=== PATIENT | male | born 1940 | race Caucasian/White ===

== ENCOUNTER 2017-03-08 15:32 | Inpatient (IN) | payer MEDICARE, OTHER ==
[~2017-03-08] VITALS: Ht 170.1 cm; Wt 55.6 kg
[~2017-03-08 15:32] MED LIST: ALBUTEROL2.5 MG/0.5 INH; ASPIR LOW81 MG PO; LEVAQUIN750 M1 PO; LIPITOR80 MG PO; PRILOSEC20 M2 PO; PRINIVIL10 MG PO; SYMBICORT1 AE1 INH; ZOLOFT50 MG PO
[2017-03-08 16:24] VITALS: BP 134/68
[2017-03-08 16:59] LABS: BUN 11 mg/dl (7-24); CARBON DIOXIDE 29 mmol/L (21-32); CHLORIDE 100 mmol/L (98-107); EST GLOM FILT AFRICAN AMERICAN > 60 ml/min; GLUCOSE 89 mg/dL (65-99); POTASSIUM 3.9 mmol/L (3.5-5.1); SODIUM 137 mmol/L (136-145)
[2017-03-08 18:25] VITALS: BP 130/70
[2017-03-08 19:30] VITALS: BP 128/58
[2017-03-08 20:00] VITALS: BP 128/58
[2017-03-09] VITALS: BP 111/53
[2017-03-09 06:26] LABS: BASO # 0.1 10*3/uL (0.0-0.1); BASO % 0.7 % (0.0-1.0); EOS # 0.2 10*3/uL (0.0-0.4); EOS % 1.8 % (1.0-4.0); HEMATOCRIT 40.4 % (42.0-52.0); HEMOGLOBIN 13.5 g/dl (14.0-18.0); LYMPH # 1.8 10*3/uL (1.3-4.4); LYMPH % 21.1 % (27.0-41.0); MEAN CELL VOLUME 85.6 fl (80.0-94.0); MEAN CORPUSCULAR HGB 28.6 pg (27.0-31.0); MEAN CORPUSCULAR HGB CONC 33.4 g/dl (33.0-37.0); MEAN PLATELET VOLUME 11.6 fl (9.6-12.3); MONO # 1.2 10*3/uL (0.1-1.0); MONO % 13.3 % (3.0-9.0); NEUT # 5.4 10*3/uL (2.3-7.9); NEUT % 62.8 % (47.0-73.0); PLATELET COUNT AUTOMATED 195 10*3/uL (130-400); RED BLOOD COUNT 4.72 10*6/uL (4.50-5.90); RED CELL DISTRI WIDTH 14.3 % (0-14.5); WHITE BLOOD COUNT 8.7 10*3/uL (4.8-10.8)
[2017-03-09 06:33] LABS: HEMOGLOBIN A1c 5.8 % (4.8-5.6)
[2017-03-09 06:54] LABS: ALBUMIN 3.1 gm/dl (3.1-4.5); BUN 12 mg/dl (7-24); CARBON DIOXIDE 32 mmol/L (21-32); CHLORIDE 103 mmol/L (98-107); CHOLESTEROL 122 mg/dL (<200); EST GLOM FILT AFRICAN AMERICAN > 60 ml/min; GLUCOSE 86 mg/dL (65-99); MAGNESIUM 2.1 mg/dL (1.5-2.1); POTASSIUM 3.8 mmol/L (3.5-5.1); SGOT/AST 12 IU/L (3-35); SGPT/ALT 18 U/L (12-78); SODIUM 142 mmol/L (136-145); TOTAL PROTEIN 6.3 gm/dL (6.4-8.2); TRIGLYCERIDES 102 mg/dl (<150); VLDL CHOLESTEROL 20 mg/dL (6-40)
[2017-03-09 06:56] LABS: ALKALINE PHOSPHATASE 78 U/L (45-117); BILIRUBIN, TOTAL 0.8 mg/dl (0.2-1.0); HDL CHOLESTEROL 61 mg/dl (40-60); LDL CHOLESTEROL 41 mg/dL (9-159)
[2017-03-09 07:06] LABS: FOLIC ACID > 24.00 ng/mL (>5.38)
[2017-03-09 08:00] VITALS: BP 109/59
[2017-03-09 12:00] VITALS: BP 112/60; BP 148/72
[2017-03-09] MEDS ORDERED: VITAMIN D1000 IU PO (13:26)
[2017-03-09] MEDS ORDERED: VITAMIN A8000 UNIT PO (13:27)
[2017-03-09] MEDS ORDERED: VITAMIN C500 M4 PO (13:27)
[2017-03-09] MEDS ORDERED: CLARITIN10 MG PO (13:27)
[2017-03-09] MEDS ORDERED: DAILY VITAMIN1 EAC3 PO (13:28)
[2017-03-09 16:00] VITALS: BP 127/59
[2017-03-09 20:00] VITALS: BP 142/68
[2017-03-10] VITALS: BP 103/54
[2017-03-10 07:12] LABS: BASO # 0.1 10*3/uL (0.0-0.1); BASO % 0.6 % (0.0-1.0); EOS # 0.2 10*3/uL (0.0-0.4); EOS % 2.1 % (1.0-4.0); HEMATOCRIT 39.2 % (42.0-52.0); HEMOGLOBIN 12.9 g/dl (14.0-18.0); LYMPH # 1.6 10*3/uL (1.3-4.4); LYMPH % 20.2 % (27.0-41.0); MEAN CELL VOLUME 85.2 fl (80.0-94.0); MEAN CORPUSCULAR HGB CONC 32.9 g/dl (33.0-37.0); MEAN PLATELET VOLUME 11.7 fl (9.6-12.3); MONO % 11.9 % (3.0-9.0); NEUT # 5.2 10*3/uL (2.3-7.9); NEUT % 64.8 % (47.0-73.0); PLATELET COUNT AUTOMATED 192 10*3/uL (130-400); RED CELL DISTRI WIDTH 14.3 % (0-14.5); WHITE BLOOD COUNT 8.1 10*3/uL (4.8-10.8)
[2017-03-10 08:00] VITALS: BP 135/56
[2017-03-10 12:00] VITALS: BP 114/81
[2017-03-10 16:37] VITALS: BP 123/53
== END 2017-03-10 17:24 | disposition home or self-care (01) | DRG 549 ==
LOC: ED 15:32 → 4E 17:56 → EDHOLD 17:56 → 4E 18:10
PROVIDERS: Emergency Medicine; Hospitalist
DX: M00.9 Pyogenic arthritis, unspecified (principal); E44.0 Moderate protein-calorie malnutrition; J44.9 Chronic obstructive pulmonary disease, unspecified; Z68.1 Body mass index [BMI] 19.9 or less, adult; I25.10 Atherosclerotic heart disease of native coronary artery without angina pectoris; K21.9 Gastro-esophageal reflux disease without esophagitis; E78.5 Hyperlipidemia, unspecified; I10 Essential (primary) hypertension; I25.2 Old myocardial infarction; Z87.891 Personal history of nicotine dependence; R79.82 Elevated C-reactive protein (CRP); D72.829 Elevated white blood cell count, unspecified; D72.810 Lymphocytopenia; Z98.49 Cataract extraction status, unspecified eye; Z95.5 Presence of coronary angioplasty implant and graft

== ENCOUNTER → 2017-11-01 | Outpatient (CLI) | payer MEDICARE, OTHER ==
[~2017-11-01] MED LIST changes: +CLARITIN10 MG PO; +DAILY VITAMIN1 EAC3 PO; +VITAMIN A8000 UNIT PO; +VITAMIN C500 M4 PO; +VITAMIN D1000 IU PO
== END | disposition home or self-care (01) ==
LOC: RAD 06:53
DX: Z00.01 Encounter for general adult medical examination with abnormal findings (principal); J44.9 Chronic obstructive pulmonary disease, unspecified; Z87.891 Personal history of nicotine dependence; R06.00 Dyspnea, unspecified

== ENCOUNTER 2018-03-03 10:28 | Emergency (ER) | payer MEDICARE, OTHER ==
[~2018-03-03] VITALS: Ht 170.1 cm; Wt 58.1 kg
[2018-03-03 11:08] LABS: BASO % 0.3 % (0.0-1.0); EOS # 0.1 10*3/uL (0.0-0.4); EOS % 0.8 % (1.0-4.0); HEMATOCRIT 44.6 % (42.0-52.0); HEMOGLOBIN 14.5 g/dl (14.0-18.0); LYMPH # 1.4 10*3/uL (1.3-4.4); LYMPH % 10.7 % (27.0-41.0); MEAN CELL VOLUME 87.5 fl (80.0-94.0); MEAN CORPUSCULAR HGB 28.4 pg (27.0-31.0); MEAN CORPUSCULAR HGB CONC 32.5 g/dl (33.0-37.0); MEAN PLATELET VOLUME 11.8 fl (9.6-12.3); MONO # 1.3 10*3/uL (0.1-1.0); MONO % 9.6 % (3.0-9.0); NEUT # 10.5 10*3/uL (2.3-7.9); NEUT % 78.2 % (47.0-73.0); PLATELET COUNT AUTOMATED 195 10*3/uL (130-400); RED CELL DISTRI WIDTH 14.3 % (0-14.5); WHITE BLOOD COUNT 13.4 10*3/uL (4.8-10.8)
[2018-03-03 11:24] LABS: ALBUMIN 3.8 gm/dl (3.1-4.5); ALKALINE PHOSPHATASE 105 U/L (45-117); BUN 9 mg/dl (7-24); CHLORIDE 101 mmol/L (98-107); POTASSIUM 4.1 mmol/L (3.5-5.1); SGOT/AST 18 IU/L (3-35); SGPT/ALT 20 U/L (12-78); SODIUM 137 mmol/L (136-145)
[2018-03-03] MEDS ORDERED: SEPTDS PO (11:40)
[2018-03-03] MEDS ORDERED: KEFLEX500 M1 PO (11:40)
[2018-03-03] MEDS ORDERED: NORCO 5-325 TA1 EACH PO (11:41)
== END 2018-03-03 11:50 | disposition home or self-care (01) ==
LOC: ED 10:28
PROVIDERS: Nurse Practitioner Family
DX: M70.21 Olecranon bursitis, right elbow (principal); R03.0 Elevated blood-pressure reading, without diagnosis of hypertension; F17.200 Nicotine dependence, unspecified, uncomplicated; Z79.899 Other long term (current) drug therapy; Z79.82 Long term (current) use of aspirin; Y93.89 Activity, other specified

== ENCOUNTER → 2018-03-06 | Outpatient (CLI) | payer MEDICARE, OTHER ==
[~2018-03-06] MED LIST changes: +KEFLEX500 M1 PO; +NORCO 5-325 TA1 EACH PO; +SEPTDS PO
[2018-03-06 13:56] LABS: BASO # 0.1 10*3/uL (0.0-0.1); BASO % 0.7 % (0.0-1.0); EOS # 0.1 10*3/uL (0.0-0.4); EOS % 1.7 % (1.0-4.0); HEMATOCRIT 43.1 % (42.0-52.0); LYMPH # 1.3 10*3/uL (1.3-4.4); LYMPH % 16.6 % (27.0-41.0); MEAN CELL VOLUME 85.9 fl (80.0-94.0); MEAN CORPUSCULAR HGB 27.9 pg (27.0-31.0); MEAN CORPUSCULAR HGB CONC 32.5 g/dl (33.0-37.0); MEAN PLATELET VOLUME 11.7 fl (9.6-12.3); MONO # 0.9 10*3/uL (0.1-1.0); MONO % 11.2 % (3.0-9.0); NEUT # 5.3 10*3/uL (2.3-7.9); NEUT % 69.4 % (47.0-73.0); PLATELET COUNT AUTOMATED 194 10*3/uL (130-400); RED BLOOD COUNT 5.02 10*6/uL (4.50-5.90); WHITE BLOOD COUNT 7.6 10*3/uL (4.8-10.8)
[2018-03-06 19:58] LABS: BF LYMPHOCYTES 12 %; BF MONOCYTES 36 %; BF NEUTROPHILS 52 %
[2018-03-06 19:59] LABS: BODY FLUID WBC 6625 /uL
[2018-03-09 15:07] LABS: ACID FAST SPEC PROCESSING Concentration (.)
== END | disposition home or self-care (01) ==
LOC: LAB 13:15
PROVIDERS: Orthopaedic Surgery
DX: M25.421 Effusion, right elbow (principal)

== ENCOUNTER 2018-05-17 09:39 | Inpatient (IN) | payer MEDICARE, OTHER ==
[~2018-05-17] VITALS: Ht 170.1 cm; Wt 57.7 kg
--- NOTE | ~2018-05-17 | EKG ---
[place], [place] ELECTROCARDIOGRAM REPORT NAME: LIZ TURNER UNIT #: [id number] ROOM: 401 DOCTOR: DWIGHT DRAFT REPORT BIRTHDATE: [birth year] [facility] Test Date: 2018-05-17 Test Time: 10:17:25 Pat Name: LIZ TURNER Department: Room: 401 Gender: M Copywriting Intern: Verenice Castaneda : 1940 Requested By: AZALIA GÓMEZ Order Number: [id number] Reading MD: Tuan Woo MD Measurements Intervals [place] Rate: 81 P: 83 [place]: 166 QRS: 78 QRSD: 91 T: 68 QT: 338 QTc: 393 Interpretive Statements Sinus rhythm Low voltage, extremity leads Electronically Signed On 05-18-2018 7:52:04 PDT by Tuan Woo MD CM:EKGRPT:ELECTROCARDIOGRAM REPORT [id number] AZALIA QUINTANILLA DRAFT REPORT AZALIA SIMONS
[2018-05-17 09:41] VITALS: BP 134/62
[2018-05-17 10:21] LABS: BASO % 0.5 % (0.0-1.0); EOS # 0.1 10*3/uL (0.0-0.4); EOS % 1.5 % (1.0-4.0); HEMATOCRIT 45.7 % (42.0-52.0); HEMOGLOBIN 14.9 g/dl (14.0-18.0); LYMPH # 1.6 10*3/uL (1.3-4.4); LYMPH % 19.4 % (27.0-41.0); MEAN CELL VOLUME 86.2 fl (80.0-94.0); MEAN CORPUSCULAR HGB 28.1 pg (27.0-31.0); MEAN CORPUSCULAR HGB CONC 32.6 g/dl (33.0-37.0); MEAN PLATELET VOLUME 11.3 fl (9.6-12.3); MONO # 0.9 10*3/uL (0.1-1.0); MONO % 11.8 % (3.0-9.0); NEUT # 5.3 10*3/uL (2.3-7.9); NEUT % 66.5 % (47.0-73.0); PLATELET COUNT AUTOMATED 204 10*3/uL (130-400); RED CELL DISTRI WIDTH 13.7 % (0-14.5)
[2018-05-17 10:37] LABS: ALBUMIN 3.8 gm/dl (3.1-4.5); ALKALINE PHOSPHATASE 101 U/L (45-117); BUN 6 mg/dl (7-24); CHLORIDE 102 mmol/L (98-107); CREATININE 0.94 mg/dL (0.70-1.30); LIPASE 132 U/L (73-393); POTASSIUM 4.3 mmol/L (3.5-5.1); SGOT/AST 17 IU/L (3-35); SGPT/ALT 20 U/L (12-78); SODIUM 137 mmol/L (136-145); TOTAL PROTEIN 7.1 gm/dL (6.4-8.2); TROPONIN I < 0.015 ng/ml (<0.045)
[2018-05-17 10:40] LABS: ACT PARTIAL THROMBO TIME 26.5 SECONDS (20.8-31.5); INTERNATIONAL NORM RATIO 0.9 (2.0-3.5)
[2018-05-17 10:53] VITALS: BP 108/66
[2018-05-17 11:18] LABS: BILIRUBIN NEGATIVE (NEGATIVE); BLOOD NEGATIVE (NEGATIVE); CLARITY CLEAR (CLEAR); COLOR YELLOW (YELLOW); GLUCOSE NEGATIVE (NEGATIVE); KETONE NEGATIVE (NEGATIVE); LEUKO ESTERASE NEGATIVE (NEGATIVE); NITRITE NEGATIVE (NEGATIVE); PH 7.5 (5.0-9.0); UROBILINOGEN 0.2 E.U./dl (0.2-1.0)
[2018-05-17 11:31] LABS: BACTERIA TRACE; RBC 0-2 rbc/hpf (0-2); WBC 0-2 wbc/hpf (0-5)
[2018-05-17 12:05] VITALS: BP 111/61
[2018-05-17 13:00] VITALS: BP 124/69; BP 127/69
[2018-05-17 16:00] VITALS: BP 109/45
[2018-05-17 20:00] VITALS: BP 120/50
[2018-05-18] VITALS: BP 112/57
[2018-05-18 06:39] LABS: HEMATOCRIT 42.8 % (42.0-52.0); HEMOGLOBIN 13.9 g/dl (14.0-18.0); MEAN CELL VOLUME 86.6 fl (80.0-94.0); MEAN CORPUSCULAR HGB 28.1 pg (27.0-31.0); MEAN CORPUSCULAR HGB CONC 32.5 g/dl (33.0-37.0); MEAN PLATELET VOLUME 12.2 fl (9.6-12.3); PLATELET COUNT AUTOMATED 230 10*3/uL (130-400); RED BLOOD COUNT 4.94 10*6/uL (4.50-5.90); RED CELL DISTRI WIDTH 13.7 % (0-14.5); WHITE BLOOD COUNT 25.7 10*3/uL (4.8-10.8)
[2018-05-18 06:45] LABS: ALBUMIN 3.4 gm/dl (3.1-4.5); ALKALINE PHOSPHATASE 93 U/L (45-117); BUN 11 mg/dl (7-24); CHLORIDE 104 mmol/L (98-107); CHOLESTEROL 120 mg/dL (<200); CREATININE 0.98 mg/dL (0.70-1.30); FREE T4 0.91 ng/dl (0.76-1.46); HDL CHOLESTEROL 70 mg/dl (40-60); LDL CHOLESTEROL 41 mg/dL (9-159); PHOSPHOROUS 1.9 mg/dL (2.5-4.9); POTASSIUM 4.3 mmol/L (3.5-5.1); SGOT/AST 12 IU/L (3-35); SGPT/ALT 17 U/L (12-78); SODIUM 140 mmol/L (136-145); TOTAL PROTEIN 6.5 gm/dL (6.4-8.2); TRIGLYCERIDES 47 mg/dl (<150); VLDL CHOLESTEROL 9 mg/dL (6-40)
[2018-05-18 06:50] LABS: THYROID STIM HORMONE (HS) 0.395 uIU/ml (0.358-4.75)
[2018-05-18 07:24] LABS: PLATELET SUFFICIENCY NORMAL (NORMAL); TOTAL CELLS COUNTED 100 #CELLS
[2018-05-18 07:36] LABS: VITAMIN D, 25-HYDROXY 57.5 ng/mL (30-100)
[2018-05-18 08:00] VITALS: BP 118/67
[2018-05-18] MEDS ORDERED: PREDNISONE10 MG PO (10:46)
[2018-05-18] MEDS ORDERED: LEVAQUIN750 M1 PO (10:46)
[2018-05-18] MEDS ORDERED: VALTREX1000 MG PO (10:46)
== END 2018-05-18 11:59 | disposition home or self-care (01) | DRG 596 ==
LOC: ED 09:39 → EDHOLD 12:03 → 4E 12:03
PROVIDERS: Internal Medicine; Physician Assistant
DX: B02.9 Zoster without complications (principal); J44.1 Chronic obstructive pulmonary disease with (acute) exacerbation; I25.10 Atherosclerotic heart disease of native coronary artery without angina pectoris; I10 Essential (primary) hypertension; E83.41 Hypermagnesemia; F17.210 Nicotine dependence, cigarettes, uncomplicated; K21.9 Gastro-esophageal reflux disease without esophagitis; E78.5 Hyperlipidemia, unspecified; Z79.82 Long term (current) use of aspirin; Z79.899 Other long term (current) drug therapy; Z95.5 Presence of coronary angioplasty implant and graft; Z98.49 Cataract extraction status, unspecified eye; Z82.49 Family history of ischemic heart disease and other diseases of the circulatory system; Z80.9 Family history of malignant neoplasm, unspecified

== ENCOUNTER 2019-09-19 11:28 | Emergency (ER) | payer MEDICARE, OTHER ==
[~2019-09-19] VITALS: Ht 170.1 cm; Wt 55.8 kg
[~2019-09-19 11:28] MED LIST changes: +PREDNISONE10 MG PO; +VALTREX1000 MG PO
[2019-09-19 12:00] LABS: BASO # 0.1 10*3/uL (0.0-0.1); BASO % 0.6 % (0.0-1.0); EOS # 0.1 10*3/uL (0.0-0.4); EOS % 1.2 % (1.0-4.0); HEMATOCRIT 47.7 % (42.0-52.0); HEMOGLOBIN 15.4 g/dl (14.0-18.0); LYMPH # 1.7 10*3/uL (1.3-4.4); LYMPH % 16.6 % (27.0-41.0); MEAN CELL VOLUME 86.3 fl (80.0-94.0); MEAN CORPUSCULAR HGB 27.8 pg (27.0-31.0); MEAN CORPUSCULAR HGB CONC 32.3 g/dl (33.0-37.0); MEAN PLATELET VOLUME 11.8 fl (9.6-12.3); MONO # 1.2 10*3/uL (0.1-1.0); MONO % 11.2 % (3.0-9.0); NEUT # 7.3 10*3/uL (2.3-7.9); NEUT % 69.9 % (47.0-73.0); PLATELET COUNT AUTOMATED 255 10*3/uL (130-400); RED BLOOD COUNT 5.53 10*6/uL (4.50-5.90); RED CELL DISTRI WIDTH 13.9 % (0-14.5); WHITE BLOOD COUNT 10.4 10*3/uL (4.8-10.8)
[2019-09-19 12:11] LABS: ACT PARTIAL THROMBO TIME 30.9 SECONDS (20.0-32.1); INTERNATIONAL NORM RATIO 0.9 (2.0-3.5)
[2019-09-19 12:17] LABS: ALBUMIN 3.6 gm/dl (3.1-4.5); ALKALINE PHOSPHATASE 105 U/L (45-117); BUN 13 mg/dl (7-24); CHLORIDE 102 mmol/L (98-107); CREATININE 0.94 mg/dL (0.70-1.30); POTASSIUM 4.3 mmol/L (3.5-5.1); SGOT/AST 16 IU/L (3-35); SGPT/ALT 21 U/L (12-78); SODIUM 137 mmol/L (136-145); TOTAL PROTEIN 7.5 gm/dL (6.4-8.2)
[2019-09-19 12:20] LABS: TROPONIN I < 0.015 ng/ml (<0.045)
[2019-09-19] MEDS ORDERED: Ipratropium Brom3 ML INH (12:58)
[2019-09-19] MEDS ORDERED: VIBRAMYCIN100 MG PO (12:58)
[2019-09-19] MEDS ORDERED: PREDNISONE20 M1 PO (12:58)
== END 2019-09-19 13:04 | disposition home or self-care (01) ==
LOC: ED 11:28
PROVIDERS: Emergency Medicine
DX: J44.1 Chronic obstructive pulmonary disease with (acute) exacerbation (principal); I25.2 Old myocardial infarction; I25.10 Atherosclerotic heart disease of native coronary artery without angina pectoris; E78.5 Hyperlipidemia, unspecified; K21.9 Gastro-esophageal reflux disease without esophagitis; F17.200 Nicotine dependence, unspecified, uncomplicated; Z79.82 Long term (current) use of aspirin; Z79.899 Other long term (current) drug therapy; Z79.2 Long term (current) use of antibiotics; Z90.49 Acquired absence of other specified parts of digestive tract

== ENCOUNTER 2019-10-14 10:36 | Inpatient (IN) | payer MEDICARE, OTHER ==
[~2019-10-14] VITALS: Ht 170.2 cm; Wt 52.6 kg
[~2019-10-14 10:36] MED LIST changes: +Ipratropium Brom3 ML INH; +PREDNISONE20 M1 PO; +VIBRAMYCIN100 MG PO
[2019-10-14 10:45] VITALS: BP 89/71
[2019-10-14 11:15] LABS: HEMATOCRIT 46.3 % (42.0-52.0); HEMOGLOBIN 14.9 g/dl (14.0-18.0); MEAN CELL VOLUME 85.7 fl (80.0-94.0); MEAN CORPUSCULAR HGB 27.6 pg (27.0-31.0); MEAN CORPUSCULAR HGB CONC 32.2 g/dl (33.0-37.0); MEAN PLATELET VOLUME 11.3 fl (9.6-12.3); PLATELET COUNT AUTOMATED 273 10*3/uL (130-400); RED CELL DISTRI WIDTH 14.2 % (0-14.5); WHITE BLOOD COUNT 18.5 10*3/uL (4.8-10.8)
[2019-10-14 11:24] VITALS: BP 120/50
[2019-10-14 11:25] LABS: ACT PARTIAL THROMBO TIME 30.8 SECONDS (20.0-32.1); INTERNATIONAL NORM RATIO 0.9 (2.0-3.5)
[2019-10-14 11:26] LABS: ALBUMIN 3.6 gm/dl (3.1-4.5); ALKALINE PHOSPHATASE 113 U/L (45-117); BUN 9 mg/dl (7-24); CHLORIDE 101 mmol/L (98-107); POTASSIUM 4.1 mmol/L (3.5-5.1); SGOT/AST 13 IU/L (3-35); SGPT/ALT 23 U/L (12-78); SODIUM 136 mmol/L (136-145); TOTAL PROTEIN 7.3 gm/dL (6.4-8.2); TROPONIN I < 0.015 ng/ml (<0.045)
[2019-10-14 11:39] LABS: TOTAL CELLS COUNTED 100 #CELLS
[2019-10-14 11:40] LABS: PLATELET SUFFICIENCY NORMAL (NORMAL); POLYCHROMASIA SLIGHT; VACUOLATION OF NEUTROPHILS SLIGHT
[2019-10-14 12:20] VITALS: BP 107/54
[2019-10-14] MEDS ORDERED: SPIRIVA RESPIMAT4 GM INH (13:17)
[2019-10-14] MEDS ORDERED: Ventolin 02.5 MG/3 M INH (13:20)
[2019-10-14] MEDS ORDERED: ULTRAM50 MG PO (13:21)
[2019-10-14] MEDS ORDERED: MUCINEX ER600 MG PO (13:23)
[2019-10-14] MEDS ORDERED: CLARITIN10 MG PO (13:25)
[2019-10-14] MEDS ORDERED: CALCIUM 500 +1 EAC3 PO (13:26)
[2019-10-14] MEDS ORDERED: FISH OIL PEARL PO (13:27)
[2019-10-14 16:00] VITALS: BP 109/51
[2019-10-14 16:29] LABS: BILIRUBIN NEGATIVE (NEGATIVE); BLOOD NEGATIVE (NEGATIVE); CLARITY CLEAR (CLEAR); COLOR YELLOW (YELLOW); GLUCOSE NEGATIVE (NEGATIVE); KETONE NEGATIVE (NEGATIVE); LEUKO ESTERASE NEGATIVE (NEGATIVE); NITRITE NEGATIVE (NEGATIVE); PH 7.5 (5.0-9.0); UROBILINOGEN 0.2 E.U./dl (0.2-1.0)
[2019-10-14 16:34] LABS: BACTERIA TRACE; EPITHELIAL CELLS 0-2; RBC 0-2 rbc/hpf (0-2); WBC 0-2 wbc/hpf (0-5)
[2019-10-14 20:00] VITALS: BP 105/49
[2019-10-15] VITALS: BP 116/44
[2019-10-15 06:45] LABS: HEMATOCRIT 39.6 % (42.0-52.0); HEMOGLOBIN 12.6 g/dl (14.0-18.0); MEAN CELL VOLUME 86.3 fl (80.0-94.0); MEAN CORPUSCULAR HGB 27.5 pg (27.0-31.0); MEAN CORPUSCULAR HGB CONC 31.8 g/dl (33.0-37.0); MEAN PLATELET VOLUME 11.3 fl (9.6-12.3); PLATELET COUNT AUTOMATED 264 10*3/uL (130-400); RED BLOOD COUNT 4.59 10*6/uL (4.50-5.90); RED CELL DISTRI WIDTH 14.2 % (0-14.5); WHITE BLOOD COUNT 17.2 10*3/uL (4.8-10.8)
[2019-10-15 07:09] LABS: ALBUMIN 2.9 gm/dl (3.1-4.5); ALKALINE PHOSPHATASE 96 U/L (45-117); BUN 10 mg/dl (7-24); CHLORIDE 108 mmol/L (98-107); CHOLESTEROL 135 mg/dL (<200); CREATININE 0.92 mg/dL (0.70-1.30); HDL CHOLESTEROL 68 mg/dl (40-60); LDL CHOLESTEROL 56 mg/dL (9-159); POTASSIUM 3.9 mmol/L (3.5-5.1); SGOT/AST 10 IU/L (3-35); SGPT/ALT 17 U/L (12-78); SODIUM 142 mmol/L (136-145); TOTAL PROTEIN 6.1 gm/dL (6.4-8.2); TRIGLYCERIDES 57 mg/dl (<150); VLDL CHOLESTEROL 11 mg/dL (6-40)
[2019-10-15 07:23] LABS: ATYPICAL LYMPHS 1 % (0-0); BURR CELLS FEW; OVALOCYTES FEW; PLATELET SUFFICIENCY NORMAL (NORMAL); TOTAL CELLS COUNTED 100 #CELLS
[2019-10-15 07:24] LABS: POLYCHROMASIA SLIGHT; TOXIC GRANULATION SLIGHT; VACUOLATION OF NEUTROPHILS SLIGHT
[2019-10-15 07:50] VITALS: BP 120/62
[2019-10-15 11:52] VITALS: BP 126/56
[2019-10-15 16:00] VITALS: BP 138/59
[2019-10-15 20:00] VITALS: BP 136/63
[2019-10-16] VITALS: BP 119/50
[2019-10-16 08:00] VITALS: BP 122/58
[2019-10-16] MEDS ORDERED: OMNICEF300 MG PO (09:10)
[2019-10-16] MEDS ORDERED: ZITHROMAX500 MG PO (09:10)
[2019-10-16] MEDS ORDERED: PREDNISONE10 MG PO (09:10)
== END 2019-10-16 10:06 | disposition home or self-care (01) | DRG 871 ==
LOC: ED 10:36 → 4E 11:48 → EDHOLD 11:48 → 4E 12:17
PROVIDERS: Emergency Medicine; Student in an Organized Health Care Education/Training Program; ADMIT Emergency Medicine
DX: A41.9 Sepsis, unspecified organism (principal); J18.9 Pneumonia, unspecified organism; J44.1 Chronic obstructive pulmonary disease with (acute) exacerbation; E87.2 Acidosis; J44.0 Chronic obstructive pulmonary disease with (acute) lower respiratory infection; R65.20 Severe sepsis without septic shock; I25.10 Atherosclerotic heart disease of native coronary artery without angina pectoris; I10 Essential (primary) hypertension; E78.5 Hyperlipidemia, unspecified; K21.9 Gastro-esophageal reflux disease without esophagitis; J20.9 Acute bronchitis, unspecified; M94.0 Chondrocostal junction syndrome [Tietze]; F17.200 Nicotine dependence, unspecified, uncomplicated; Z96.1 Presence of intraocular lens; Z95.5 Presence of coronary angioplasty implant and graft; Z79.899 Other long term (current) drug therapy; Z79.82 Long term (current) use of aspirin; I25.2 Old myocardial infarction; Z98.49 Cataract extraction status, unspecified eye; Z82.49 Family history of ischemic heart disease and other diseases of the circulatory system; Z83.3 Family history of diabetes mellitus; Z98.42 Cataract extraction status, left eye; Z98.41 Cataract extraction status, right eye; Z71.6 Tobacco abuse counseling

== ENCOUNTER → 2020-07-29 | Outpatient (CLI) | payer MEDICARE, OTHER ==
[~2020-07-29] MED LIST changes: +CALCIUM 500 +1 EAC3 PO; +FISH OIL PEARL PO; +MUCINEX ER600 MG PO; +OMNICEF300 MG PO; +SPIRIVA RESPIMAT4 GM INH; +ULTRAM50 MG PO; +Ventolin 02.5 MG/3 M INH; +ZITHROMAX500 MG PO
== END | disposition home or self-care (01) ==
LOC: RAD 10:31
PROVIDERS: ATTEND Nurse Practitioner Family
DX: S83.92XA Sprain of unspecified site of left knee, initial encounter (principal); M17.12 Unilateral primary osteoarthritis, left knee; X58.XXXA Exposure to other specified factors, initial encounter; Y93.89 Activity, other specified; Y92.89 Other specified places as the place of occurrence of the external cause; Y99.8 Other external cause status

== ENCOUNTER 2021-02-02 06:48 | Inpatient (IN) | payer MEDICARE, OTHER ==
[~2021-02-02] VITALS: Ht 170.1 cm; Wt 56.4 kg
[2021-02-02 07:09] VITALS: BP 125/42
[2021-02-02 08:07] LABS: BASO # 0.1 10*3/uL (0.0-0.1); BASO % 0.4 % (0.0-1.0); EOS # 0.1 10*3/uL (0.0-0.4); EOS % 0.4 % (1.0-4.0); HEMATOCRIT 48.9 % (42.0-52.0); LYMPH % 7.8 % (27.0-41.0); MEAN CELL VOLUME 86.1 fl (80.0-94.0); MEAN CORPUSCULAR HGB 26.9 pg (27.0-31.0); MEAN CORPUSCULAR HGB CONC 31.3 g/dl (33.0-37.0); MEAN PLATELET VOLUME 11.6 fl (9.6-12.3); MONO # 1.2 10*3/uL (0.1-1.0); NEUT # 10.7 10*3/uL (2.3-7.9); NEUT % 82.1 % (47.0-73.0); PLATELET COUNT AUTOMATED 202 10*3/uL (130-400); RED BLOOD COUNT 5.68 10*6/uL (4.50-5.90); RED CELL DISTRI WIDTH 13.8 % (0-14.5); WHITE BLOOD COUNT 13.1 10*3/uL (4.8-10.8)
[2021-02-02 08:22] LABS: ALBUMIN 3.4 gm/dl (3.1-4.5); ALKALINE PHOSPHATASE 110 U/L (45-117); BUN 9 mg/dl (7-24); CHLORIDE 103 mmol/L (98-107); CREATININE 0.85 mg/dL (0.70-1.30); POTASSIUM 4.1 mmol/L (3.5-5.1); SGOT/AST 13 IU/L (3-35); SGPT/ALT 20 U/L (12-78); SODIUM 136 mmol/L (136-145); URIC ACID 4.6 mg/dL (3.5-7.2)
[2021-02-02 14:16] VITALS: BP 113/80
[2021-02-02 16:00] VITALS: BP 112/50
[2021-02-02 16:35] LABS: BODY FLUID WBC > 100000 /uL
[2021-02-02] MEDS ORDERED: GABAPENTIN400 MG PO (16:58)
[2021-02-02] MEDS ORDERED: LISINOPRIL10 M1 PO (16:59)
[2021-02-02] MEDS ORDERED: OMEPRAZOLE10 MG PO (17:00)
[2021-02-02 17:08] LABS: BF LYMPHOCYTES 10 %; BF NEUTROPHILS 90 %
[2021-02-02 20:00] VITALS: BP 118/48
[2021-02-03] VITALS (9 sets, daily range): BP systolic 117–160; BP diastolic 54–78
[2021-02-03 06:12] LABS: BASO % 0.1 % (0.0-1.0); EOS % 0.1 % (1.0-4.0); HEMATOCRIT 42.8 % (42.0-52.0); LYMPH # 0.9 10*3/uL (1.3-4.4); LYMPH % 6.1 % (27.0-41.0); MEAN CELL VOLUME 84.6 fl (80.0-94.0); MEAN CORPUSCULAR HGB 26.9 pg (27.0-31.0); MEAN CORPUSCULAR HGB CONC 31.8 g/dl (33.0-37.0); MONO % 6.9 % (3.0-9.0); NEUT # 12.3 10*3/uL (2.3-7.9); NEUT % 86.4 % (47.0-73.0); PLATELET COUNT AUTOMATED 212 10*3/uL (130-400); RED BLOOD COUNT 5.06 10*6/uL (4.50-5.90); RED CELL DISTRI WIDTH 13.8 % (0-14.5); WHITE BLOOD COUNT 14.3 10*3/uL (4.8-10.8)
[2021-02-03 06:30] LABS: ALBUMIN 3.1 gm/dl (3.1-4.5); ALKALINE PHOSPHATASE 88 U/L (45-117); BUN 10 mg/dl (7-24); CHLORIDE 108 mmol/L (98-107); CREATININE 0.88 mg/dL (0.70-1.30); POTASSIUM 4.1 mmol/L (3.5-5.1); SGOT/AST 9 IU/L (3-35); SGPT/ALT 16 U/L (12-78); SODIUM 139 mmol/L (136-145); TOTAL PROTEIN 6.4 gm/dL (6.4-8.2)
[2021-02-04] VITALS: BP 119/46
[2021-02-04 05:46] LABS: BUN 11 mg/dl (7-24); CHLORIDE 107 mmol/L (98-107); CREATININE 0.79 mg/dL (0.70-1.30); POTASSIUM 3.4 mmol/L (3.5-5.1); SODIUM 141 mmol/L (136-145)
[2021-02-04 06:18] LABS: MEAN CELL VOLUME 84.8 fl (80.0-94.0); MEAN CORPUSCULAR HGB 27.2 pg (27.0-31.0); MEAN CORPUSCULAR HGB CONC 32.1 g/dl (33.0-37.0); PLATELET COUNT AUTOMATED 203 10*3/uL (130-400); WHITE BLOOD COUNT 17.8 10*3/uL (4.8-10.8)
[2021-02-04 06:59] LABS: PLATELET SUFFICIENCY NORMAL (NORMAL); TOTAL CELLS COUNTED 100 #CELLS
[2021-02-04 07:00] LABS: BURR CELLS FEW; OVALOCYTES FEW; POLYCHROMASIA SLIGHT
[2021-02-04 08:00] VITALS: BP 132/68
[2021-02-04 12:00] VITALS: BP 150/68
[2021-02-04 16:00] VITALS: BP 136/58
[2021-02-04 20:00] VITALS: BP 150/61
[2021-02-05] VITALS: BP 142/60
[2021-02-05 06:32] LABS: HEMATOCRIT 39.4 % (42.0-52.0); MEAN CELL VOLUME 86.2 fl (80.0-94.0); MEAN CORPUSCULAR HGB 27.1 pg (27.0-31.0); MEAN CORPUSCULAR HGB CONC 31.5 g/dl (33.0-37.0); MEAN PLATELET VOLUME 11.3 fl (9.6-12.3); PLATELET COUNT AUTOMATED 200 10*3/uL (130-400); RED BLOOD COUNT 4.57 10*6/uL (4.50-5.90); RED CELL DISTRI WIDTH 14.1 % (0-14.5)
[2021-02-05 07:07] LABS: BURR CELLS FEW; OVALOCYTES FEW; PLATELET SUFFICIENCY NORMAL (NORMAL); TOTAL CELLS COUNTED 100 #CELLS
[2021-02-05 08:00] VITALS: BP 144/62
[2021-02-05 12:00] VITALS: BP 160/84
[2021-02-05 16:00] VITALS: BP 160/83
[2021-02-05 20:00] VITALS: BP 167/85
[2021-02-06] VITALS: BP 124/52
[2021-02-06 08:07] VITALS: BP 123/75
[2021-02-06 12:17] VITALS: BP 185/74
[2021-02-06] MEDS ORDERED: CLINDAMYCIN HC300 MG PO (14:22)
== END 2021-02-06 15:00 | disposition home or self-care (01) | DRG 507 ==
LOC: ED 06:48 → EDHOLD 09:46 → 4E 09:46 → EDHOLD 09:59 → 4E 13:49
PROVIDERS: Emergency Medicine; Orthopaedic Surgery; Student in an Organized Health Care Education/Training Program; ADMIT Student in an Organized Health Care Education/Training Program; ATTEND Student in an Organized Health Care Education/Training Program
PROC: 0RBL0ZZ Excision of Right Elbow Joint, Open Approach (ICD-10-PCS; 2021-02-02)
PROC: 0R9L3ZZ Drainage of Right Elbow Joint, Percutaneous Approach (ICD-10-PCS; 2021-02-02)
PROC: 0R9L0ZZ Drainage of Right Elbow Joint, Open Approach (ICD-10-PCS; principal; 2021-02-03)
DX: M00.9 Pyogenic arthritis, unspecified (principal); R65.10 Systemic inflammatory response syndrome (SIRS) of non-infectious origin without acute organ dysfunction; E44.1 Mild protein-calorie malnutrition; Z68.1 Body mass index [BMI] 19.9 or less, adult; M11.221 Other chondrocalcinosis, right elbow; R79.82 Elevated C-reactive protein (CRP); E83.41 Hypermagnesemia; I25.10 Atherosclerotic heart disease of native coronary artery without angina pectoris; J44.9 Chronic obstructive pulmonary disease, unspecified; I10 Essential (primary) hypertension; E78.5 Hyperlipidemia, unspecified; K21.9 Gastro-esophageal reflux disease without esophagitis; F17.210 Nicotine dependence, cigarettes, uncomplicated; Z71.6 Tobacco abuse counseling; Z90.49 Acquired absence of other specified parts of digestive tract; Z95.5 Presence of coronary angioplasty implant and graft; Z98.49 Cataract extraction status, unspecified eye; Z83.3 Family history of diabetes mellitus; Z82.49 Family history of ischemic heart disease and other diseases of the circulatory system; Z80.8 Family history of malignant neoplasm of other organs or systems; I25.2 Old myocardial infarction; Z79.899 Other long term (current) drug therapy; Z79.82 Long term (current) use of aspirin

== ENCOUNTER 2021-04-17 14:14 | Inpatient (IN) | payer MEDICARE, OTHER ==
[~2021-04-17] VITALS: Ht 170.1 cm; Wt 54.4 kg
[~2021-04-17 14:14] MED LIST changes: +CLINDAMYCIN HC300 MG PO; +GABAPENTIN400 MG PO; +LISINOPRIL10 M1 PO; +OMEPRAZOLE10 MG PO
[2021-04-17 14:34] VITALS: BP 166/70
[2021-04-17 16:00] VITALS: BP 114/47
[2021-04-17 16:11] VITALS: BP 114/47
[2021-04-17 16:54] LABS: BASO # 0.1 10*3/uL (0.0-0.1); BASO % 0.2 % (0.0-1.0); EOS % 0.2 % (1.0-4.0); HEMATOCRIT 43.9 % (42.0-52.0); LYMPH # 0.9 10*3/uL (1.3-4.4); LYMPH % 4.6 % (27.0-41.0); MEAN CELL VOLUME 85.1 fl (80.0-94.0); MEAN CORPUSCULAR HGB 26.9 pg (27.0-31.0); MEAN CORPUSCULAR HGB CONC 31.7 g/dl (33.0-37.0); MEAN PLATELET VOLUME 11.3 fl (9.6-12.3); MONO % 4.7 % (3.0-9.0); NEUT # 18.1 10*3/uL (2.3-7.9); NEUT % 89.9 % (47.0-73.0); PLATELET COUNT AUTOMATED 238 10*3/uL (130-400); RED BLOOD COUNT 5.16 10*6/uL (4.50-5.90); RED CELL DISTRI WIDTH 14.5 % (0-14.5); WHITE BLOOD COUNT 20.2 10*3/uL (4.8-10.8)
[2021-04-17 17:00] VITALS: BP 109/82
[2021-04-17 18:31] LABS: ALBUMIN 3.7 gm/dl (3.1-4.5); ALKALINE PHOSPHATASE 109 U/L (45-117); BUN 12 mg/dl (7-24); CHLORIDE 105 mmol/L (98-107); CREATININE 0.95 mg/dL (0.70-1.30); POTASSIUM 3.9 mmol/L (3.5-5.1); SGOT/AST 12 IU/L (3-35); SGPT/ALT 21 U/L (12-78); SODIUM 138 mmol/L (136-145)
[2021-04-17 20:00] VITALS: BP 123/52
[2021-04-18 04:13] LABS: HEMATOCRIT 38.2 % (42.0-52.0); MEAN CELL VOLUME 84.9 fl (80.0-94.0); MEAN CORPUSCULAR HGB 26.9 pg (27.0-31.0); MEAN CORPUSCULAR HGB CONC 31.7 g/dl (33.0-37.0); MEAN PLATELET VOLUME 11.5 fl (9.6-12.3); PLATELET COUNT AUTOMATED 216 10*3/uL (130-400); RED CELL DISTRI WIDTH 14.6 % (0-14.5); WHITE BLOOD COUNT 14.5 10*3/uL (4.8-10.8)
[2021-04-18 04:38] LABS: ALBUMIN 2.9 gm/dl (3.1-4.5); ALKALINE PHOSPHATASE 90 U/L (45-117); BUN 14 mg/dl (7-24); CHLORIDE 109 mmol/L (98-107); CHOLESTEROL 118 mg/dL (<200); LDL CHOLESTEROL 42 mg/dL (9-159); POTASSIUM 4.1 mmol/L (3.5-5.1); SGOT/AST 8 IU/L (3-35); SGPT/ALT 16 U/L (12-78); SODIUM 139 mmol/L (136-145); TOTAL PROTEIN 5.8 gm/dL (6.4-8.2); TRIGLYCERIDES 51 mg/dl (<150)
[2021-04-18 04:44] LABS: THYROID STIM HORMONE (HS) 0.209 uIU/ml (0.358-4.75)
[2021-04-18 05:05] LABS: PLATELET SUFFICIENCY NORMAL (NORMAL); TOTAL CELLS COUNTED 100 #CELLS
[2021-04-18 05:06] LABS: BURR CELLS MODERATE
[2021-04-18 05:26] VITALS: BP 112/61
[2021-04-18 08:00] VITALS: BP 120/50
[2021-04-18 16:00] VITALS: BP 117/53
[2021-04-18 20:00] VITALS: BP 131/54
[2021-04-19] VITALS: BP 112/53
[2021-04-19 07:58] LABS: HEMATOCRIT 41.3 % (42.0-52.0); MEAN CELL VOLUME 86.6 fl (80.0-94.0); MEAN CORPUSCULAR HGB 26.6 pg (27.0-31.0); MEAN CORPUSCULAR HGB CONC 30.8 g/dl (33.0-37.0); MEAN PLATELET VOLUME 11.6 fl (9.6-12.3); PLATELET COUNT AUTOMATED 205 10*3/uL (130-400); RED BLOOD COUNT 4.77 10*6/uL (4.50-5.90); RED CELL DISTRI WIDTH 14.9 % (0-14.5); WHITE BLOOD COUNT 20.4 10*3/uL (4.8-10.8)
[2021-04-19 08:00] VITALS: BP 134/65
[2021-04-19 08:15] LABS: TOTAL CELLS COUNTED 100 #CELLS
[2021-04-19 08:16] LABS: BURR CELLS FEW; OVALOCYTES FEW; PLATELET SUFFICIENCY NORMAL (NORMAL)
[2021-04-19 08:19] LABS: BUN 10 mg/dl (7-24); CHLORIDE 112 mmol/L (98-107); CREATININE 0.82 mg/dL (0.70-1.30); POTASSIUM 3.3 mmol/L (3.5-5.1); SODIUM 145 mmol/L (136-145)
[2021-04-19 12:00] VITALS: BP 135/65
[2021-04-19 16:00] VITALS: BP 143/60
[2021-04-19 20:00] VITALS: BP 111/47
[2021-04-20] VITALS: BP 116/57
[2021-04-20 08:00] VITALS: BP 123/54
[2021-04-20 08:46] LABS: BASO # 0.1 10*3/uL (0.0-0.1); BASO % 0.3 % (0.0-1.0); EOS # 0.2 10*3/uL (0.0-0.4); EOS % 1.3 % (1.0-4.0); HEMATOCRIT 40.5 % (42.0-52.0); LYMPH # 2.6 10*3/uL (1.3-4.4); LYMPH % 16.8 % (27.0-41.0); MEAN CELL VOLUME 87.7 fl (80.0-94.0); MEAN CORPUSCULAR HGB 27.3 pg (27.0-31.0); MEAN CORPUSCULAR HGB CONC 31.1 g/dl (33.0-37.0); MEAN PLATELET VOLUME 11.3 fl (9.6-12.3); MONO # 0.9 10*3/uL (0.1-1.0); MONO % 6.1 % (3.0-9.0); NEUT # 11.4 10*3/uL (2.3-7.9); PLATELET COUNT AUTOMATED 190 10*3/uL (130-400); RED BLOOD COUNT 4.62 10*6/uL (4.50-5.90); RED CELL DISTRI WIDTH 15.1 % (0-14.5); WHITE BLOOD COUNT 15.2 10*3/uL (4.8-10.8)
[2021-04-20 08:57] LABS: BUN 8 mg/dl (7-24); CHLORIDE 109 mmol/L (98-107); CREATININE 0.96 mg/dL (0.70-1.30); POTASSIUM 3.9 mmol/L (3.5-5.1); SODIUM 141 mmol/L (136-145)
[2021-04-20 12:00] VITALS: BP 120/65
[2021-04-20 16:00] VITALS: BP 116/59
[2021-04-20 20:00] VITALS: BP 125/52
[2021-04-21] VITALS: BP 106/47
[2021-04-21 06:22] LABS: HEMATOCRIT 41.4 % (42.0-52.0); MEAN CELL VOLUME 86.6 fl (80.0-94.0); MEAN CORPUSCULAR HGB CONC 31.2 g/dl (33.0-37.0); MEAN PLATELET VOLUME 11.9 fl (9.6-12.3); PLATELET COUNT AUTOMATED 212 10*3/uL (130-400); RED BLOOD COUNT 4.78 10*6/uL (4.50-5.90); RED CELL DISTRI WIDTH 14.7 % (0-14.5); WHITE BLOOD COUNT 18.2 10*3/uL (4.8-10.8)
[2021-04-21 06:38] LABS: ALBUMIN 2.6 gm/dl (3.1-4.5); ALKALINE PHOSPHATASE 103 U/L (45-117); BUN 7 mg/dl (7-24); CHLORIDE 109 mmol/L (98-107); CREATININE 0.82 mg/dL (0.70-1.30); POTASSIUM 3.3 mmol/L (3.5-5.1); SGOT/AST 13 IU/L (3-35); SGPT/ALT 21 U/L (12-78); SODIUM 141 mmol/L (136-145); TOTAL PROTEIN 5.7 gm/dL (6.4-8.2)
[2021-04-21 07:19] LABS: PLATELET SUFFICIENCY NORMAL (NORMAL); TOTAL CELLS COUNTED 100 #CELLS
[2021-04-21 08:00] VITALS: BP 141/72
[2021-04-21 12:00] VITALS: BP 97/61
[2021-04-21 16:00] VITALS: BP 110/50
[2021-04-21 20:00] VITALS: BP 106/56
[2021-04-22] VITALS: BP 124/52
[2021-04-22 06:31] LABS: HEMATOCRIT 38.6 % (42.0-52.0); MEAN CELL VOLUME 86.9 fl (80.0-94.0); MEAN CORPUSCULAR HGB CONC 31.1 g/dl (33.0-37.0); MEAN PLATELET VOLUME 11.7 fl (9.6-12.3); PLATELET COUNT AUTOMATED 217 10*3/uL (130-400); RED BLOOD COUNT 4.44 10*6/uL (4.50-5.90); RED CELL DISTRI WIDTH 14.6 % (0-14.5); WHITE BLOOD COUNT 22.5 10*3/uL (4.8-10.8)
[2021-04-22 06:42] LABS: ALBUMIN 2.4 gm/dl (3.1-4.5); ALKALINE PHOSPHATASE 70 U/L (45-117); BUN 8 mg/dl (7-24); CHLORIDE 106 mmol/L (98-107); CREATININE 0.92 mg/dL (0.70-1.30); POTASSIUM 3.9 mmol/L (3.5-5.1); SGOT/AST 9 IU/L (3-35); SGPT/ALT 15 U/L (12-78); SODIUM 141 mmol/L (136-145); TOTAL PROTEIN 5.6 gm/dL (6.4-8.2)
[2021-04-22 07:56] LABS: BASOPHILS 2 % (0-1); TOTAL CELLS COUNTED 100 #CELLS
[2021-04-22 07:57] LABS: PLATELET SUFFICIENCY NORMAL (NORMAL)
[2021-04-22 08:00] VITALS: BP 111/52
[2021-04-22 12:00] VITALS: BP 101/47
[2021-04-22 16:00] VITALS: BP 143/57
[2021-04-22 20:00] VITALS: BP 116/45
[2021-04-22 23:00] VITALS: BP 116/56
[2021-04-23 07:03] LABS: HEMATOCRIT 38.8 % (42.0-52.0); MEAN CELL VOLUME 84.3 fl (80.0-94.0); MEAN CORPUSCULAR HGB 26.5 pg (27.0-31.0); MEAN CORPUSCULAR HGB CONC 31.4 g/dl (33.0-37.0); MEAN PLATELET VOLUME 11.4 fl (9.6-12.3); PLATELET COUNT AUTOMATED 236 10*3/uL (130-400); RED CELL DISTRI WIDTH 14.6 % (0-14.5); WHITE BLOOD COUNT 18.1 10*3/uL (4.8-10.8)
[2021-04-23 07:24] LABS: CHLORIDE 104 mmol/L (98-107); POTASSIUM 3.7 mmol/L (3.5-5.1); SODIUM 137 mmol/L (136-145)
[2021-04-23 07:33] LABS: ALBUMIN 2.6 gm/dl (3.1-4.5); ALKALINE PHOSPHATASE 86 U/L (45-117); BUN 7 mg/dl (7-24); CREATININE 0.79 mg/dL (0.70-1.30); SGOT/AST 13 IU/L (3-35); SGPT/ALT 21 U/L (12-78); TOTAL PROTEIN 6.3 gm/dL (6.4-8.2)
[2021-04-23 08:00] VITALS: BP 130/68
[2021-04-23 08:11] LABS: BASOPHILS 1 % (0-1); PLATELET SUFFICIENCY NORMAL (NORMAL); TOTAL CELLS COUNTED 100 #CELLS
[2021-04-23 12:00] VITALS: BP 109/64
[2021-04-23 16:00] VITALS: BP 104/59
[2021-04-23 20:00] VITALS: BP 137/62
[2021-04-24] VITALS: BP 126/62
[2021-04-24 06:07] LABS: HEMATOCRIT 39.1 % (42.0-52.0); MEAN CELL VOLUME 85.7 fl (80.0-94.0); MEAN CORPUSCULAR HGB CONC 31.5 g/dl (33.0-37.0); MEAN PLATELET VOLUME 11.2 fl (9.6-12.3); PLATELET COUNT AUTOMATED 240 10*3/uL (130-400); RED BLOOD COUNT 4.56 10*6/uL (4.50-5.90); RED CELL DISTRI WIDTH 14.5 % (0-14.5); WHITE BLOOD COUNT 15.4 10*3/uL (4.8-10.8)
[2021-04-24 06:25] LABS: ALBUMIN 2.3 gm/dl (3.1-4.5); BUN 7 mg/dl (7-24); CHLORIDE 104 mmol/L (98-107); CREATININE 0.87 mg/dL (0.70-1.30); POTASSIUM 4.4 mmol/L (3.5-5.1); SGOT/AST 26 IU/L (3-35); SGPT/ALT 30 U/L (12-78); SODIUM 139 mmol/L (136-145); TOTAL PROTEIN 6.4 gm/dL (6.4-8.2)
[2021-04-24 06:29] LABS: ALKALINE PHOSPHATASE 82 U/L (45-117)
[2021-04-24 07:15] LABS: TOTAL CELLS COUNTED 100 #CELLS
[2021-04-24 07:16] LABS: PLATELET SUFFICIENCY NORMAL (NORMAL)
[2021-04-24 07:17] LABS: BURR CELLS MODERATE
[2021-04-24 08:00] VITALS: BP 131/70
[2021-04-24 12:00] VITALS: BP 99/57
[2021-04-24] MEDS ORDERED: VANCOMYCIN HCL125 MG PO (13:50)
== END 2021-04-24 14:55 | disposition home or self-care (01) | DRG 854 ==
LOC: SDC 14:14 → ICCU 16:26 → 5E 16:26 → ICCU 17:45 → 5E 04-18 19:21
PROVIDERS: Family Medicine; Hospitalist; Internal Medicine; Orthopaedic Surgery; Student in an Organized Health Care Education/Training Program; ADMIT Family Medicine; ATTEND Family Medicine
PROC: 0R9L0ZZ Drainage of Right Elbow Joint, Open Approach (ICD-10-PCS; principal; 2021-04-17)
PROC: 0JDG0ZZ Extraction of Right Lower Arm Subcutaneous Tissue and Fascia, Open Approach (ICD-10-PCS; 2021-04-17)
PROC: 3E0T3BZ Introduction of Anesthetic Agent into Peripheral Nerves and Plexi, Percutaneous Approach (ICD-10-PCS; 2021-04-17)
DX: A41.9 Sepsis, unspecified organism (principal); M00.9 Pyogenic arthritis, unspecified; E44.1 Mild protein-calorie malnutrition; A04.72 Enterocolitis due to Clostridium difficile, not specified as recurrent; Z68.1 Body mass index [BMI] 19.9 or less, adult; Z20.822 Contact with and (suspected) exposure to COVID-19; Z71.6 Tobacco abuse counseling; E87.6 Hypokalemia; F17.219 Nicotine dependence, cigarettes, with unspecified nicotine-induced disorders; I25.10 Atherosclerotic heart disease of native coronary artery without angina pectoris; J44.9 Chronic obstructive pulmonary disease, unspecified; I10 Essential (primary) hypertension; E78.5 Hyperlipidemia, unspecified; K21.9 Gastro-esophageal reflux disease without esophagitis; Z95.5 Presence of coronary angioplasty implant and graft; Z90.49 Acquired absence of other specified parts of digestive tract; Z79.899 Other long term (current) drug therapy

== ENCOUNTER → 2021-06-05 | Outpatient (CLI) | payer MEDICARE, OTHER ==
[~2021-06-05] MED LIST changes: +VANCOMYCIN HCL125 MG PO
== END | disposition home or self-care (01) ==
LOC: ORTHO 10:27
PROVIDERS: ATTEND Orthopaedic Surgery
DX: M25.421 Effusion, right elbow (principal)

== ENCOUNTER 2022-01-01 07:35 | Emergency (ER) | payer MEDICARE, OTHER ==
[~2022-01-01] VITALS: Wt 56.7 kg
[2022-01-01 08:22] LABS: BASO # 0.1 10*3/uL (0.0-0.1); BASO % 0.4 % (0.0-1.0); EOS # 0.1 10*3/uL (0.0-0.4); EOS % 0.5 % (1.0-4.0); LYMPH # 0.6 10*3/uL (1.3-4.4); LYMPH % 5.3 % (27.0-41.0); MEAN CELL VOLUME 84.3 fl (80.0-94.0); MEAN CORPUSCULAR HGB 27.3 pg (27.0-31.0); MEAN CORPUSCULAR HGB CONC 32.3 g/dl (33.0-37.0); MEAN PLATELET VOLUME 10.5 fl (9.6-12.3); MONO # 1.3 10*3/uL (0.1-1.0); MONO % 11.1 % (3.0-9.0); NEUT # 9.9 10*3/uL (2.3-7.9); NEUT % 82.4 % (47.0-73.0); PLATELET COUNT AUTOMATED 185 10*3/uL (130-400); RED CELL DISTRI WIDTH 15.2 % (0-14.5); WHITE BLOOD COUNT 12.1 10*3/uL (4.8-10.8)
[2022-01-01 08:38] LABS: BUN 11 mg/dl (7-24); CHLORIDE 105 mmol/L (98-107); CREATININE 0.89 mg/dL (0.70-1.30); POTASSIUM 4.3 mmol/L (3.5-5.1); SODIUM 137 mmol/L (136-145)
[2022-01-01] MEDS ORDERED: MUCINEX DM 30/61 TAB PO (10:23)
[2022-01-01] MEDS ORDERED: PREDNISONE50 MG PO (10:23)
[2022-01-01] MEDS ORDERED: AVPAK AZITHROM250 MG PO (10:23)
[2022-01-01] MEDS ORDERED: TAMIFLU 75MG CA75 MG PO (11:16)
== END 2022-01-01 16:48 | disposition home or self-care (01) ==
LOC: ED 07:35
PROVIDERS: Emergency Medicine
DX: J44.1 Chronic obstructive pulmonary disease with (acute) exacerbation (principal); Z20.822 Contact with and (suspected) exposure to COVID-19; K21.9 Gastro-esophageal reflux disease without esophagitis; E78.5 Hyperlipidemia, unspecified; I10 Essential (primary) hypertension; J44.9 Chronic obstructive pulmonary disease, unspecified; I25.10 Atherosclerotic heart disease of native coronary artery without angina pectoris; F17.210 Nicotine dependence, cigarettes, uncomplicated; I25.2 Old myocardial infarction; Z79.899 Other long term (current) drug therapy; Z79.82 Long term (current) use of aspirin; Z90.49 Acquired absence of other specified parts of digestive tract; Z98.890 Other specified postprocedural states

== ENCOUNTER 2022-04-04 09:15 | Emergency (ER) | payer MEDICARE, OTHER ==
[~2022-04-04] VITALS: Wt 56.7 kg
[~2022-04-04 09:15] MED LIST changes: +AVPAK AZITHROM250 MG PO; +MUCINEX DM 30/61 TAB PO; +PREDNISONE50 MG PO; +TAMIFLU 75MG CA75 MG PO
[2022-04-04] MEDS ORDERED: CEPHALEXIN500 M1 PO (10:29)
== END 2022-04-04 10:41 | disposition home or self-care (01) ==
LOC: ED 09:15
DX: S51.011A Laceration without foreign body of right elbow, initial encounter (principal); L03.113 Cellulitis of right upper limb; Z79.899 Other long term (current) drug therapy; Z79.82 Long term (current) use of aspirin; Z90.49 Acquired absence of other specified parts of digestive tract; Z98.890 Other specified postprocedural states; Z87.891 Personal history of nicotine dependence; W22.8XXA Striking against or struck by other objects, initial encounter; Y93.89 Activity, other specified; Y92.89 Other specified places as the place of occurrence of the external cause; Y99.8 Other external cause status

== ENCOUNTER → 2022-11-25 | Day surgery (SDC) | payer MEDICARE, OTHER ==
[~2022-11-25] VITALS: Ht 170.1 cm; Wt 59.4 kg
[~2022-11-25] MED LIST changes: +ASMANEX220 MC4 IH; +CEPHALEXIN500 M1 PO; +COLACE100 MG PO; +HYDROCODONE-AC1 EAC1 PO; +ONDANSETRON HYDR4 M1 PO; +STRIVERDI RESPIM4 GM INH
[2022-11-25 10:00] VITALS: BP 134/59
[2022-11-25 11:00] VITALS: BP 82/41
[2022-11-25 11:15] VITALS: BP 109/51
[2022-11-25 11:30] VITALS: BP 119/57
== END | disposition home or self-care (01) ==
LOC: SDC 11-22 12:30
PROVIDERS: ATTEND Surgery
DX: D04.39 Carcinoma in situ of skin of other parts of face (principal); I10 Essential (primary) hypertension; J44.9 Chronic obstructive pulmonary disease, unspecified; I25.2 Old myocardial infarction; E78.00 Pure hypercholesterolemia, unspecified; F32.A Depression, unspecified; Z87.891 Personal history of nicotine dependence; Z79.899 Other long term (current) drug therapy

== ENCOUNTER 2023-12-17 09:38 | Inpatient (IN) | payer OTHER, MEDICARE ==
[~2023-12-17] VITALS: Ht 170.1 cm; Wt 59.4 kg
[2023-12-17 09:45] VITALS: BP 121/62
[2023-12-17] MEDS ORDERED: methylPREDNISolone sod succ 125 MG VIAL IV ONE (09:45)
[2023-12-17] MEDS ORDERED: Albuterol Sulf/Ipratropium 3 ML VIAL NEB ONE (09:45)
[2023-12-17 10:16] LABS: BASO # 0.1 10*3/uL (0.0-0.1); BASO % 0.6 % (0.0-1.0); EOS # 0.2 10*3/uL (0.0-0.4); EOS % 1.5 % (1.0-4.0); HEMATOCRIT 45.5 % (42.0-52.0); LYMPH # 2.2 10*3/uL (1.3-4.4); LYMPH % 17.8 % (27.0-41.0); MEAN CELL VOLUME 85.4 fl (80.0-94.0); MEAN CORPUSCULAR HGB CONC 31.6 g/dl (33.0-37.0); MONO # 0.8 10*3/uL (0.1-1.0); MONO % 6.6 % (3.0-9.0); NEUT # 8.8 10*3/uL (2.3-7.9); NEUT % 73.1 % (47.0-73.0); PLATELET COUNT AUTOMATED 225 10*3/uL (130-400); RED BLOOD COUNT 5.33 10*6/uL (4.50-5.90); RED CELL DISTRI WIDTH 15.3 % (0-14.5); WHITE BLOOD COUNT 12.1 10*3/uL (4.8-10.8)
[2023-12-17 10:28] LABS: ACT PARTIAL THROMBO TIME 29.6 SECONDS (20.0-32.1)
[2023-12-17 10:37] LABS: ALKALINE PHOSPHATASE 94 U/L (46-116); BUN 16 mg/dl (9-23); CHLORIDE 102 mmol/L (98-107); LIPASE 45 U/L (12-53); SGPT/ALT 19 U/L (5-49); TOTAL PROTEIN 6.9 gm/dL (6.0-8.0)
[2023-12-17] MEDS ORDERED: SODIUM CHLORIDE 0.9% 1,000 ML IV SCH (11:40)
[2023-12-17] MEDS ORDERED: AZITHROMYCIN 250 ML IV ONE (11:40)
[2023-12-17] MEDS ORDERED: Ceftriaxone Sodium 1 GM/10 ML SYR IV ONE (11:40)
[2023-12-17] MEDS ORDERED: Albuterol Sulf/Ipratropium 3 ML VIAL NEB SCH (13:00)
[2023-12-17] MEDS ORDERED: ACETAMINOPHEN 650 MG SUPP R PRN (13:00)
[2023-12-17] MEDS ORDERED: BISACODYL 10 MG SUPP R PRN (13:00)
[2023-12-17] MEDS ORDERED: Magnesium Hydroxide 30 ML UDC PO PRN (13:00)
[2023-12-17] MEDS ORDERED: BISACODYL 5 MG TAB PO PRN (13:00)
[2023-12-17] MEDS ORDERED: ACETAMINOPHEN 325 MG TAB PO PRN (13:00)
[2023-12-17 13:24] VITALS: BP 102/55
[2023-12-17 14:10] VITALS: BP 104/75
[2023-12-17] MEDS ORDERED: VITAMIN D31250 MC1 PO (14:28)
[2023-12-17 16:00] VITALS: BP 100/63; BP 115/52
[2023-12-17 20:00] VITALS: BP 102/51
[2023-12-17] MEDS ORDERED: TEMAZEPAM 15 MG CAP PO PRN (22:00)
[2023-12-17] MEDS ORDERED: ATORVASTATIN CALCIUM 40 MG TABLET PO SCH (22:00)
[2023-12-17] MEDS ORDERED: methylPREDNISolone sod succ 40 MG VIAL IV SCH (22:00)
[2023-12-17] MEDS ORDERED: GUAIFENESIN 600 MG TAB ER PO SCH (22:00)
[2023-12-18] VITALS: BP 82/47
[2023-12-18 05:52] LABS: FREE T4 1.14 ng/dl (0.89-1.76); POTASSIUM 4.8 mmol/L (3.4-5.1)
[2023-12-18 06:31] LABS: MEAN CELL VOLUME 84.8 fl (80.0-94.0); MEAN CORPUSCULAR HGB 27.3 pg (27.0-31.0); MEAN CORPUSCULAR HGB CONC 32.1 g/dl (33.0-37.0); MEAN PLATELET VOLUME 11.4 fl (9.6-12.3); PLATELET COUNT AUTOMATED 221 10*3/uL (130-400); RED BLOOD COUNT 4.95 10*6/uL (4.50-5.90); RED CELL DISTRI WIDTH 15.3 % (0-14.5); WHITE BLOOD COUNT 19.4 10*3/uL (4.8-10.8)
[2023-12-18 06:43] LABS: MANUAL DIFF REFLEX YES
[2023-12-18 07:18] LABS: PLATELET SUFFICIENCY NORMAL (NORMAL); TOTAL CELLS COUNTED 100 #CELLS
[2023-12-18 07:19] LABS: ACANTHOCYTES FEW; BURR CELLS FEW
[2023-12-18] MEDS ORDERED: OMEPRAZOLE 20 MG CAP PO SCH (07:30)
[2023-12-18 08:00] VITALS: BP 110/60
[2023-12-18] MEDS ORDERED: LISINOPRIL 10 MG TAB PO SCH (10:00)
[2023-12-18] MEDS ORDERED: ASPIRIN ENTERIC COATED 81 MG TAB PO SCH (10:00)
[2023-12-18] MEDS ORDERED: CALCIUM CARBONATE/VITAMIN D3 500 MG/200 IU TABLET PO SCH (10:00)
[2023-12-18] MEDS ORDERED: Enoxaparin Sodium 40 MG/0.4 ML SYR SC SCH (10:00)
[2023-12-18 12:00] VITALS: BP 125/55
[2023-12-18] MEDS ORDERED: Ceftriaxone Sodium 1 GM,IV 1 EA in SYRINGE INFUSION 10 ML IV SCH (12:00)
[2023-12-18] MEDS ORDERED: AZITHROMYCIN 250 ML IV SCH (13:00)
[2023-12-18 16:00] VITALS: BP 113/57
[2023-12-18 20:00] VITALS: BP 134/60
[2023-12-19] VITALS: BP 107/85
[2023-12-19 07:24] LABS: BUN 28 mg/dl (9-23); CHLORIDE 102 mmol/L (98-107); POTASSIUM 4.2 mmol/L (3.4-5.1)
[2023-12-19 08:00] VITALS: BP 160/59
[2023-12-19] MEDS ORDERED: hydrOXYzine pamoate 25 MG CAP PO ONE (08:20)
[2023-12-19] MEDS ORDERED: NAPROXEN SODIUM 220 MG PO ONE (09:35)
[2023-12-19] MEDS ORDERED: NAPROXEN SODIUM 220 MG PO PRN (10:30)
[2023-12-19 12:00] VITALS: BP 144/72
[2023-12-19] MEDS ORDERED: hydrOXYzine pamoate 25 MG CAP PO SCH (12:00)
[2023-12-19 12:30] VITALS: BP 140/68
[2023-12-19 16:00] VITALS: BP 117/64
[2023-12-19 20:00] VITALS: BP 129/57
[2023-12-20] VITALS: BP 136/57
[2023-12-20 06:05] LABS: HEMATOCRIT 39.5 % (42.0-52.0); MEAN CELL VOLUME 86.1 fl (80.0-94.0); MEAN CORPUSCULAR HGB 27.7 pg (27.0-31.0); MEAN CORPUSCULAR HGB CONC 32.2 g/dl (33.0-37.0); MEAN PLATELET VOLUME 11.6 fl (9.6-12.3); PLATELET COUNT AUTOMATED 219 10*3/uL (130-400); RED BLOOD COUNT 4.59 10*6/uL (4.50-5.90); RED CELL DISTRI WIDTH 15.9 % (0-14.5)
[2023-12-20 06:09] LABS: MANUAL DIFF REFLEX YES
[2023-12-20 06:45] LABS: BUN 26 mg/dl (9-23); CHLORIDE 103 mmol/L (98-107); POTASSIUM 5.1 mmol/L (3.4-5.1)
[2023-12-20 07:34] LABS: PLATELET SUFFICIENCY NORMAL (NORMAL); TOTAL CELLS COUNTED 100 #CELLS
[2023-12-20] MEDS ORDERED: NAPROXEN SODIUM 220 MG PO PRN (07:35)
[2023-12-20] MEDS ORDERED: NAPROXEN SODIUM 220 MG PO ONE (07:40)
[2023-12-20 08:00] VITALS: BP 113/66
[2023-12-20] MEDS ORDERED: MUCUS RELIEF600 MG PO (10:24)
[2023-12-20] MEDS ORDERED: HYDROXYZINE HCL25 MG PO (10:24)
[2023-12-20] MEDS ORDERED: PREDNISONE10 MG PO (10:25)
[2023-12-20] MEDS ORDERED: ZITHROMAX250 MG PO (10:25)
== END 2023-12-20 12:55 | disposition home or self-care (01) | DRG 871 ==
LOC: ED 09:38 → EDHOLD 12:44 → 4E 12:44
PROVIDERS: Family Medicine; Internal Medicine; Student in an Organized Health Care Education/Training Program; ADMIT Student in an Organized Health Care Education/Training Program; ATTEND Student in an Organized Health Care Education/Training Program
DX: A41.9 Sepsis, unspecified organism (principal); J18.9 Pneumonia, unspecified organism; N17.0 Acute kidney failure with tubular necrosis; J44.1 Chronic obstructive pulmonary disease with (acute) exacerbation; E87.1 Hypo-osmolality and hyponatremia; R65.20 Severe sepsis without septic shock; R73.9 Hyperglycemia, unspecified; I25.10 Atherosclerotic heart disease of native coronary artery without angina pectoris; K21.9 Gastro-esophageal reflux disease without esophagitis; E78.5 Hyperlipidemia, unspecified; I10 Essential (primary) hypertension; I95.9 Hypotension, unspecified; I25.2 Old myocardial infarction; Z90.49 Acquired absence of other specified parts of digestive tract; Z95.5 Presence of coronary angioplasty implant and graft; Z79.82 Long term (current) use of aspirin; Z79.51 Long term (current) use of inhaled steroids; Z79.899 Other long term (current) drug therapy